=== PATIENT | male | born 1950 | race Caucasian/White ===

== ENCOUNTER 2020-11-28 15:55 | Outpatient (NON) | payer MEDICARE, SELFPAY ==
[2020-11-28 17:49] LABS: Basophils Absolute Auto 0.15 K/mm3 (0.00-0.10); Basophils Percent Auto 2.3 % (0.0-1.0); Eosinophils Absolute Auto 0.23 K/mm3 (0.02-0.50); Eosinophils Percent Auto 3.5 % (1.0-6.0); Hematocrit 26.3 % (37.0-46.0); Hemoglobin 7.9 g/dL (12.4-15.3); Immature Granulocyte Absolute 0.01 K/mm3 (0.00-0.00); Immature Granulocyte Percent A 0.2 % (0.0-0.0); Lymphocytes Absolute Auto 1.69 K/mm3 (1.10-4.50); Lymphocytes Percent Auto 25.5 % (18.0-42.0); Mean Corpuscular Hemoglobin 27.1 pg (27.0-31.0); Mean Corpuscular Volume 90.1 fL (78.0-102.0); Mean Platelet Volume 12.1 fl (8.7-11.0); Monocytes Absolute Auto 0.72 K/mm3 (0.10-0.90); Monocytes Percent Auto 10.9 % (2.0-11.0); Neutrophils Absolute Auto 3.8 K/mm3 (1.7-7.2); Neutrophils Percent Auto 57.6 % (50.0-70.0); Platelet Count Result 206 K/mm3 (150-420); Red Blood Count 2.92 M/mm3 (4.70-6.10); Red Cell Distribution Width 15.9 % (11.6-14.4); White Blood Count 6.6 K/mm3 (4.8-10.8)
[2020-11-28 18:36] LABS: Iron 35 ug/dL (65-175); Percent Iron Saturation 7 % (12-57); Vitamin B12 397 pg/mL (193-986)
== END 2020-11-28 15:56 | disposition home or self-care (01) ==
LOC: CHSLAB 17:14
PROVIDERS: Visit Provider Family Medicine
DX: D64.9 Anemia, unspecified (principal)
CPT/HCPCS: 36415; 82607; 83540; 83550; 85025

== ENCOUNTER 2020-12-08 16:38 | Outpatient (NON) | payer MEDICARE, SELFPAY ==
[2020-12-08 17:19] LABS: Iron 79 ug/dL (65-175); Percent Iron Saturation 15 % (12-57)
[2020-12-08 23:28] LABS: Basophils Absolute Auto 0.15 K/mm3 (0.00-0.10); Eosinophils Absolute Auto 0.22 K/mm3 (0.02-0.50); Hematocrit 35.1 % (37.0-46.0); Hemoglobin 10.5 g/dL (12.4-15.3); Immature Granulocyte Absolute 0.03 K/mm3 (0.00-0.00); Immature Granulocyte Percent A 0.4 % (0.0-0.0); Lymphocytes Percent Auto 25.6 % (18.0-42.0); Mean Corpuscular HGB Conc 29.9 g/dL (32.0-36.0); Mean Corpuscular Hemoglobin 28.2 pg (27.0-31.0); Mean Corpuscular Volume 94.1 fL (78.0-102.0); Mean Platelet Volume 13.1 fl (8.7-11.0); Monocytes Absolute Auto 0.65 K/mm3 (0.10-0.90); Monocytes Percent Auto 8.8 % (2.0-11.0); Neutrophils Absolute Auto 4.5 K/mm3 (1.7-7.2); Neutrophils Percent Auto 60.2 % (50.0-70.0); Platelet Count Result 198 K/mm3 (150-420); Red Blood Count 3.73 M/mm3 (4.70-6.10); Red Cell Distribution Width 20.1 % (11.6-14.4); White Blood Count 7.4 K/mm3 (4.8-10.8)
== END 2020-12-08 16:39 | disposition home or self-care (01) ==
LOC: CHSLAB 16:47
PROVIDERS: Visit Provider Family Medicine
DX: K92.2 Gastrointestinal hemorrhage, unspecified (principal); D64.9 Anemia, unspecified
CPT/HCPCS: 36415; 83540; 83550; 85025; 85055

== ENCOUNTER 2021-08-01 10:12 | Outpatient (CLI) | payer MEDICARE, MEDICAID, SELFPAY ==
[2021-08-01 10:33] LABS: Basophils Absolute Auto 0.22 K/mm3 (0.00-0.10); Basophils Percent Auto 2.6 % (0.0-1.0); Eosinophils Percent Auto 3.6 % (1.0-6.0); Hematocrit 40.8 % (37.0-46.0); Hemoglobin 12.9 g/dL (12.4-15.3); Immature Granulocyte Absolute 0.03 K/mm3 (0.00-0.00); Immature Granulocyte Percent A 0.4 % (0.0-0.0); Lymphocytes Absolute Auto 2.31 K/mm3 (1.10-4.50); Lymphocytes Percent Auto 27.5 % (18.0-42.0); Mean Corpuscular HGB Conc 31.6 g/dL (32.0-36.0); Mean Corpuscular Hemoglobin 29.8 pg (27.0-31.0); Mean Corpuscular Volume 94.2 fL (78.0-102.0); Mean Platelet Volume 11.2 fl (8.7-11.0); Monocytes Absolute Auto 0.83 K/mm3 (0.10-0.90); Monocytes Percent Auto 9.9 % (2.0-11.0); Neutrophils Absolute Auto 4.7 K/mm3 (1.7-7.2); Platelet Count Result 162 K/mm3 (150-420); Red Blood Count 4.33 M/mm3 (4.70-6.10); Red Cell Distribution Width 14.8 % (11.6-14.4); White Blood Count 8.4 K/mm3 (4.8-10.8)
[2021-08-01 16:08] LABS: Albumin Level 3.3 g/dL (3.4-5.0); Anion Gap 7 mmol/L (8-16); Blood Urea Nitrogen 24 mg/dL (7-18); Carbon Dioxide 29 mmol/L (21-32); Chloride 103 mmol/L (98-108); Estimated Glomerular Filt Rate 34; Glucose 114 mg/dL (70-99); Osmolality Calculated 293 mOsm/kg (285-295); Phosphorus 3.2 mg/dL (2.6-4.7); Potassium 4.2 mmol/L (3.5-5.1); Sodium 139 mmol/L (136-145)
== END 2021-08-01 10:13 | disposition home or self-care (01) ==
LOC: CHSLAB 10:24
PROVIDERS: PCP Family Medicine
DX: N18.4 Chronic kidney disease, stage 4 (severe) (principal)
CPT/HCPCS: 36415; 80069; 85025

== ENCOUNTER 2022-12-05 20:23 | Emergency (ER) | payer MEDICARE, MEDICAID, SELFPAY ==
--- NOTE | ~2022-12-05 | CT_ITS ---
EXAMINATION: CT brain wo con DATE: 12/05/2022 21:00 INDICATION: fall, head injury, on AC . TECHNIQUE: Computed tomography (CT) of the head was performed without intravenous contrast. The mA wa s adjusted according to patient size. Iterative reconstruction technique was employed. The dose-lengt h product was 681.00 mGy-cm. COMPARISON: None. FINDINGS: No acute intracranial hemorrhage or extra-axial fluid collection. No hydrocephalus, mass, or herniation. No acute ischemic infarct. Unremarkable dural venous sinus attenuation. No acute osseous abnormality. Left mastoid fluid, the remaining aerated spaces are clear. Mild atrophy and chronic white matter change. Atherosclerotic intracranial calcification. 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 Bilateral lens replacements. IMPRESSION: No acute intracranial process. Reviewed, dictated and finalized at location K.
--- NOTE | ~2022-12-05 | CT_ITS ---
EXAMINATION: CT cervical spine wo con DATE: 12/05/2022 21:00 INDICATION: fall, head injury, on eliquis TECHNIQUE: Computed tomography (CT) of the cervical spine was performed without intravenous contrast. Automated exposure control and iterative reconstruction technique were employed. The dose-length pro duct was 552.04 mGy-cm. COMPARISON: None. FINDINGS: Vertebral Body Alignment: Intact. Multilevel trace anterolistheses throughout the cervical spine, pre sumably on a degenerative basis. Craniocervical and atlantoaxial alignment: Moderate degenerative change. Alignment intact. Osseous structures/fracture: No evidence of a lytic or blastic process in the visualized spine. No e vidence of acute fracture. ACDF hardware at C6-7. 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 Cervical soft tissues: The paraspinal soft tissues planes are maintained. Degenerative changes: Multilevel severe degenerative disc disease and facet arthropathy. Severe bilat eral neural foraminal narrowing at C3-4. No severe central canal narrowing IMPRESSION: No acute fracture or traumatic malalignment in the cervical spine. Reviewed, dictated and finalized at location K.
[2022-12-05 20:24] VITALS: BP 96/52; PULSE 56; RESP 18; TEMP 36.6; O2SAT 100
--- NOTE | 2022-12-05 20:44 | ED.FALL ---
HPI - Fall General Chief Complaint: Fall Stated Complaint: glf Time Seen by Provider: 12/05/22 20:26 History of Present Illness HPI Narrative: Patient is a 72-year-old male here for evaluation after a fall today. Patient stood up to use the bathroom without assistance and fell to the ground. and daughter who live with the patient came to see him immediately after they heard a fall and denies any loss of consciousness/AMS. Did require some assistance to get up. He typically uses a walker to ambulate. Is unsure if he was using his walker when he fell. He does take Eliquis. Patient has had frequent falls over the past several months. Patient lives at home with his and daughter and they adamantly decline [facility] placement. Related Data Allergies Allergy/AdvReac Type Severity Reaction Status Date / Time No Known Allergies Allergy Verified 12/05/22 20:33 Review of Systems Review of Systems: Gen: Denies fevers or chills Eyes: Denies eye pain or visual change ENT: Denies congestion Respiratory: Denies shortness of breath or cough CV: Denies chest pain or palpitations GI: Denies abdominal pain nausea, emesis or diarrhea : denies burning, urgency, frequency or hematuria Musculoskeletal: Denies back pain or muscle pain Neuro: Denies numbness, tingling, weakness or focal weakness Skin: Denies rash Except as documented, all other systems reviewed and negative Exam Narrative: APPEARANCE: Chronically ill-appearing. Head: Normocephalic and atraumatic. EYES: PERRLA/EOMI, conjunctivae clear NOSE: No nasal drainage EARS: External ear normal in appearance THROAT: Oropharynx is clear. Mucous membranes are moist. NECK: Supple. No adenopathy, no masses. RESPIRATORY: Airway patent, respirations nonlabored. Clear to auscultation bilaterally, no rales, rhonchi, wheezing. CARDIOVASCULAR: Regular rate and rhythm without murmurs, rubs, or gallops. ABDOMINAL: Abdomen is distended and non-tender. Normoactive bowel sounds. MUSCULOSKELETAL: Extremities are warm and well-perfused. Moves all extremities well. No edema. NEURO: Normal speech. No focal neurologic deficits. SKIN: numerous skin tears to BUE. Skin is warm and dry. No rashes. PSYCHIATRIC: Normal affect/mood. Course Vital Signs Vital signs: Vital Signs Temperature 97.8 F 12/05/22 20:24 Pulse Rate 56 L 12/05/22 20:24 Respiratory Rate 18 12/05/22 20:24 Blood Pressure 96/52 L 12/05/22 20:24 Pulse Oximetry 100 12/05/22 20:24 Oxygen Delivery Room Air 12/05/22 20:24 Temperature 97.8 F 12/05/22 20:24 Pulse Rate 61 12/05/22 22:04 Respiratory Rate 21 H 12/05/22 22:04 Blood Pressure 116/53 L 12/05/22 22:04 Pulse Oximetry 100 12/05/22 22:04 Oxygen Delivery Room Air 12/05/22 20:24 MDM - Fall MDM Narrative Medical decision making narrative: 72-year-old chronically ill male with a history of frequent falls here after a fall w/ head injury, likely due to not using his walker tonight. brought him to the ED due to concerns over head injury and being on Eliquis, no acute intracranial process detected on CT,no deficits on exam. EKG is paced. Basic labs unremarkable, his BUN and creatinine are elevated but patient's states that this is chronic. Also states he has chronically low blood pressures. Patient having difficulty getting up in ED which he attributes to weakness, and daughter adamantly declined admission for placement and want to go home, states mostly came for CT scan. Understand risks of recurrent falls/incomplete workup but still want to go home. They were given return precautions and voiced understanding. Lab Data 12/05/22 21:23 12/05/22 21:23 Labs: Lab Results 12/05/22 Range/Units 21:23 WBC 9.7 (4.5-10.0) K/mm3 RBC 3.11 L (4.6-6.20) M/mm3 Hgb 9.8 L (14.0-18.0) g/dL Hct 29.3 L (42.0-52.0) % MCV 94.2 (80-100) fl MCH 31.5 (26-34) pg MCHC 33.4 (32-3
--- NOTE | 2022-12-05 21:00 | ECG_ITS ---
Measurements Intervals [place] Rate: 54 P: 173 RI: 162 QRS: 95 QRSD: 181 T: 258 QT: 501 QTc: 478 Interpretive Statements ELECTRONIC ATRIAL PACEMAKER WITH INHIBITION ELECTRONIC VENTRICULAR PACEMAKER VENTRICULAR PREMATURE COMPLEX NO FURTHER INTERPRETATION IS POSSIBLE ATYPICAL ECG NO PREVIOUS ECG AVAILABLE FOR COMPARISON Electronically Signed On 12-06-2022 8:09:54 CDT by Yuriy Dobbs D.O.
[2022-12-05 21:24] VITALS: BP 110/50; PULSE 60
[2022-12-05 21:25] VITALS: BP 105/52; PULSE 58
[2022-12-05 21:27] LABS: Basophils Absolute Auto 0.1 K/mm3 (0.0-0.1); Basophils Percent Auto 1.2 % (0.2-1.2); Eosinophils Absolute Auto 0.2 K/mm3 (0-0.3); Eosinophils Percent Auto 1.7 % (0-4.4); Hematocrit 29.3 % (42.0-52.0); Hemoglobin 9.8 g/dL (14.0-18.0); Immature Granulocyte Absolute 0.06 K/mm3 (0.00-0.031); Immature Granulocyte Percent A 0.6 % (0-0.5); Lymphocytes Absolute Auto 1.23 K/mm3 (0.9-3.2); Lymphocytes Percent Auto 12.7 % (18.3-44.2); Mean Corpuscular HGB Conc 33.4 g/dl (32-36); Mean Corpuscular Hemoglobin 31.5 pg (26-34); Mean Corpuscular Volume 94.2 fl (80-100); Mean Platelet Volume 11.4 fl (7.4-10.4); Monocytes Percent Auto 10.7 % (2.6-8.5); Neutrophils Absolute Auto 7.1 K/mm3 (1.3-6.7); Neutrophils Percent Auto 73.1 % (45.5-73.1); Platelet Count Result 132 k/mm3 (150-375); Red Blood Count 3.11 M/mm3 (4.6-6.20); White Blood Count 9.7 K/mm3 (4.5-10.0)
[2022-12-05 21:37] LABS: Alanine Aminotransferase 23 U/L (6-50); Albumin Level 2.2 g/dL (3.5-5.1); Alkaline Phosphatase 76 U/L (38-126); Anion Gap 3 mmol/L (8-16); Aspartate Amino Transferase 47 U/L (17-59); Bilirubin,Total 0.9 mg/dL (0.2-1.3); Blood Urea Nitrogen 51 mg/dL (9-20); Calcium 7.8 mg/dL (8.4-10.2); Carbon Dioxide 24 mmol/L (22-30); Chloride 105 mmol/L (98-107); Estimated CRCL calculation 32 ml/min; Estimated Glomerular Filt Rate 31; Glucose 201 mg/dL (65-110); Potassium 3.7 mmol/L (3.4-5.0); Sodium 132 mmol/L (137-145)
[2022-12-05 21:38] LABS: Lactic Acid Reflex 1.6 mmol/L (0.7-2.0)
[2022-12-05 22:04] VITALS: BP 116/53; PULSE 61; RESP 21; O2SAT 100
== END 2022-12-05 23:03 | disposition home or self-care (01) ==
PROVIDERS: Emergency Provider Physician Assistant; PCP Family Medicine
DX: Z04.3 Encounter for examination and observation following other accident (principal); R29.6 Repeated falls; Z79.01 Long term (current) use of anticoagulants; W18.39XA Other fall on same level, initial encounter; Z95.0 Presence of cardiac pacemaker
CPT/HCPCS: 36415; 70450; 72125; 80053; 83605; 83735; 85025; 93005; 99284

== ENCOUNTER 2022-12-15 20:02 | Inpatient (IN) | payer MEDICARE, MEDICAID, SELFPAY ==
[2022-12-15] VITALS (10 sets, daily range): BP systolic 97–121; BP diastolic 40–51; PULSE 74–81; RESP 14–20; TEMP 36.4–36.7; O2SAT 96–99; BMI 23.7
--- NOTE | ~2022-12-15 | XR_ITS ---
Portable chest x-ray Comparison: None Clinical History: Weakness Findings: Lungs are clear, without focal consolidation or pleural effusion. Cardiomediastinal silho uette is unremarkable, with pacemaker device. Bones and soft tissues are unremarkable. Impression: Clear lungs. Pacemaker device. Reviewed, dictated and finalized at location . Impression: Clear lungs. Pacemaker device.
--- NOTE | 2022-12-15 20:12 | ECG_ITS ---
Measurements Intervals [place] Rate: P: OK: QRS: QRSD: T: QT: QTc: Interpretive Statements SINUS RHYTHM WITH VENTRICULAR PACING ATYPICAL ECG Electronically Signed On 12-17-2022 9:28:29 CDT by Yvon Vincent M.D.
[2022-12-15] MEDS: SODIUM CHLORIDE 0.9% IV 1,000 ML 999 ML IV CONT (20:49)
[2022-12-15 20:55] LABS: Basophils Absolute Auto 0.07 K/mm3 (0.00-0.10); Basophils Percent Auto 0.4 % (0.0-1.0); Eosinophils Absolute Auto 0.02 K/mm3 (0.02-0.50); Eosinophils Percent Auto 0.1 % (1.0-6.0); Hematocrit 32.7 % (37.0-46.0); Hemoglobin 10.9 g/dL (12.4-15.3); Immature Granulocyte Absolute 0.13 K/mm3 (0.00-0.00); Immature Granulocyte Percent A 0.8 % (0.0-0.0); Lymphocytes Absolute Auto 0.64 K/mm3 (1.10-4.50); Lymphocytes Percent Auto 4.1 % (18.0-42.0); Mean Corpuscular HGB Conc 33.3 g/dL (32.0-36.0); Mean Corpuscular Hemoglobin 31.5 pg (27.0-31.0); Mean Corpuscular Volume 94.5 fL (78.0-102.0); Mean Platelet Volume 10.9 fl (8.7-11.0); Monocytes Absolute Auto 1.19 K/mm3 (0.10-0.90); Monocytes Percent Auto 7.6 % (2.0-11.0); Neutrophils Absolute Auto 13.7 K/mm3 (1.7-7.2); Platelet Count Result 202 K/mm3 (150-420); Red Blood Count 3.46 M/mm3 (4.70-6.10); Red Cell Distribution Width 16.8 % (11.6-14.4); White Blood Count 15.8 K/mm3 (4.8-10.8)
[2022-12-15 20:56] LABS: Bilirubin Urine Negative (Negative); Blood Urine 3+ (Negative); Color Urine Yellow (Yellow); Glucose Urine UA 3+ (Negative); Ketones Urine Negative (Negative); Leukocyte Esterase Ur 2+ LEU/UL (Negative); Nitrate Urine Negative (Negative); Protein Urine 1+ (Negative); Urobilinogen Urine 0.2 mg/dL (0.2-1.0); pH Urine 5.5 (5.0-8.0)
--- NOTE | 2022-12-15 20:59 | PC.NURSE ---
pt catheter replaced
[2022-12-15 21:02] LABS: Add Urine Microscopic? YES; Appearance Urine Turbid (Clear); Bacteria Urine 4+ /hpf; RBC Urine >100 /hpf (0-2); WBC Clumps Urine Present /hpf; WBC Urine >100 /hpf (0-3)
[2022-12-15 21:07] LABS: INR 1.5; Partial Thromboplastin Time 31.3 SEC (23.90-30.70); Prothrombin Time 15.6 Seconds (9.50-12.10)
[2022-12-15 21:09] LABS: Alanine Aminotransferase 35 U/L (16-63); Albumin Level 2.2 g/dL (3.4-5.0); Alkaline Phosphatase 139 U/L (46-116); Anion Gap 8 mmol/L (8-16); Aspartate Amino Transferase 62 U/L (15-37); Bilirubin,Total 1.2 mg/dL (0.00-1.00); Blood Urea Nitrogen 69 mg/dL (7-18); CRP 1.5 mg/dL (0.0-0.9); Calcium 8.2 mg/dL (8.5-10.1); Carbon Dioxide 21 mmol/L (21-32); Chloride 92 mmol/L (98-108); Estimated CRCL calculation 24 ml/min; Estimated Glomerular Filt Rate 22; Glucose 180 mg/dL (70-99); Osmolality Calculated 277 mOsm/kg (285-295); Potassium 5.5 mmol/L (3.5-5.1); Sodium 121 mmol/L (136-145); Total Protein 6.1 g/dL (6.4-8.2)
[2022-12-15 21:12] LABS: Lactic Acid Reflex 2.2 mmol/L (0.4-2.0)
--- NOTE | 2022-12-15 21:34 | ED.GENADULT ---
HPI - General Adult General Chief complaint: Unspecified Stated complaint: weakness, myers cath leaking Time Seen by Provider: 12/15/22 20:11 Source: patient Mode of arrival: ambulatory Limitations: no limitations History of Present Illness HPI narrative: This is a 72-year-old male that presents with family with some increased weakness does have indwelling Myers catheter that has been leaking and has been having dark cloudy urine patient is alert and oriented x3 with no chest pain no shortness of breath no fever chills no flank pain no abdominal pain. Onset (ago): day(s) Related Data Home Medications Medication Instructions Recorded Confirmed apixaban 2.5 mg tablet (Eliquis) 2.5 mg PO DAILY 12/15/22 12/15/22 atorvastatin 80 mg tablet 80 mg PO DAILY 12/15/22 12/15/22 bupropion HCl 150 mg 24 hr tablet, 150 mg PO DAILY 12/15/22 12/15/22 extended release empagliflozin 10 mg tablet 10 mg PO DAILY 12/15/22 12/15/22 (Jardiance) ferrous sulfate 325 mg (65 mg 325 mg PO BID 12/15/22 12/15/22 iron) tablet (Iron (ferrous sulfate)) hydrocodone 10 mg-acetaminophen 1 tablet PO Q4-6H PRN Pain 12/15/22 12/15/22 325 mg tablet insulin lispro 100 unit/mL 7 unit subcut TID 12/15/22 12/15/22 subcutaneous pen (Humalog KwikPen (U-100) Insulin) lisinopril 5 mg tablet 5 mg PO DAILY 12/15/22 12/15/22 omeprazole 40 mg capsule,delayed 40 mg PO DAILY 12/15/22 12/15/22 release ondansetron 4 mg disintegrating 4 mg PO PRN PRN Nausea And Vomiting 12/15/22 12/15/22 tablet sertraline 50 mg tablet 50 mg PO DAILY 12/15/22 12/15/22 tamsulosin 0.4 mg capsule 0.4 mg PO DAILY 12/15/22 12/15/22 Allergies Allergy/AdvReac Type Severity Reaction Status Date / Time No Known Allergies Allergy Verified 12/05/22 20:33 Review of Systems Review of Systems: All systems reviewed & are unremarkable except as noted in HPI and below PMFSH Past Medical History Medical History Acute dehydration Afib Anemia Anxiety and depression BPH (benign prostatic hyperplasia) CHF (congestive heart failure) Chronic kidney disease Cirrhosis Combined hyperlipidemia Diabetes mellitus GERD (gastroesophageal reflux disease) Hypertension Myocardial infarction Pacemaker Surgical History Surgical History S/P CABG x 4 Family History Family History (Updated 12/16/22 @ 08:30 by BONI Kam) Mother Hypertension Heart disease Diabetes mellitus Father Hypertension Heart disease Diabetes mellitus Social History Social History Social History: patient currently lives with his Patricia. he does have a have 2 kids a son and a daughter. He stated that he has a big black dog at home. 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 Smoking packs per day: 1 Smoking cigarettes per day: 20.0 Years smoked: 59 Smoking pack-years: 59.00 Smoking status: Current every day smoker Tobacco type: cigarettes Second hand tobacco smoke exposure: Yes Alcohol intake: former Alcohol use details: Stated that he quit 30 years ago Substance use type: does not use Lack of Transportation: No Lack of Food: Never True Current Housing: I Have Housing Concerned About Future Housing: No Difficulty Paying Gas/Electric Bills: No Difficulty Paying for Meds: No Currently Unemployed: No Education: Associate Degree Difficulty w/ Childcare or Family Care: No Living arrangements: with family Additional living arrangements comments: With Occupation/Education: retired 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
--- NOTE | 2022-12-15 21:45 | PC.NURSE ---
ERP and this RN spoke c family and pt about test results and need for admit. Pt and family are agreeable to admit here, but if transferred they wish to just go home and not go anyplace else. Call placed to [facility] for admit.
[2022-12-15] MEDS: MORPHINE SULFATE (*CRX) 2 MG/ML INJ IV PUSH (21:59)
--- NOTE | 2022-12-15 23:23 | ADMGEN ---
This patient, Karl Figueroa, was admitted to 2nd Floor Room 206-1. Patient/family oriented to hospital policies and general routines including ID bracelet, bed and alarms, visiting hours, pain management, procedures, bathroom and other care routines, personal items, smoking policy, room service/diet, and visiting hours. Information on how to activate the Rapid Response Team has been discussed. Patient/Family are encouraged to report perceived risks to care and to ask questions if they do not understand what they are told or what they should do.
[2022-12-15] MEDS: SODIUM CHLORIDE 0.9% IV 1,000 ML 75 ML IV CONT (23:45)
[2022-12-15 23:52] LABS: Reflex Lactic Acid Yes or No Add Lactic
--- NOTE | 2022-12-16 05:22 | PC.NURSE ---
Patient's weight not exact. 2 pillows and 1 blanket have been added since previous weight. Patient has just fallen back asleep this nurse did not want to bother patient again. Will ask next shift to reweigh patient first time they reposition him. IV fluids infusing without difficulty. Call light in reach.
[2022-12-16 06:07] LABS: Basophils Absolute Auto 0.08 K/mm3 (0.00-0.10); Basophils Percent Auto 0.6 % (0.0-1.0); Eosinophils Absolute Auto 0.08 K/mm3 (0.02-0.50); Eosinophils Percent Auto 0.6 % (1.0-6.0); Hematocrit 28.8 % (37.0-46.0); Hemoglobin 9.7 g/dL (12.4-15.3); Immature Granulocyte Absolute 0.12 K/mm3 (0.00-0.00); Immature Granulocyte Percent A 0.9 % (0.0-0.0); Lymphocytes Absolute Auto 1.26 K/mm3 (1.10-4.50); Lymphocytes Percent Auto 9.1 % (18.0-42.0); Mean Corpuscular HGB Conc 33.7 g/dL (32.0-36.0); Mean Corpuscular Hemoglobin 31.6 pg (27.0-31.0); Mean Corpuscular Volume 93.8 fL (78.0-102.0); Mean Platelet Volume 11.3 fl (8.7-11.0); Monocytes Absolute Auto 1.18 K/mm3 (0.10-0.90); Monocytes Percent Auto 8.5 % (2.0-11.0); Neutrophils Absolute Auto 11.2 K/mm3 (1.7-7.2); Neutrophils Percent Auto 80.3 % (50.0-70.0); Platelet Count Result 178 K/mm3 (150-420); Red Blood Count 3.07 M/mm3 (4.70-6.10); White Blood Count 13.9 K/mm3 (4.8-10.8)
[2022-12-16 06:20] LABS: Alanine Aminotransferase 27 U/L (16-63); Albumin Level 1.8 g/dL (3.4-5.0); Alkaline Phosphatase 124 U/L (46-116); Anion Gap 7 mmol/L (8-16); Aspartate Amino Transferase 51 U/L (15-37); Bilirubin,Total 0.7 mg/dL (0.00-1.00); Blood Urea Nitrogen 68 mg/dL (7-18); Calcium 7.6 mg/dL (8.5-10.1); Carbon Dioxide 22 mmol/L (21-32); Chloride 98 mmol/L (98-108); Estimated CRCL calculation 27 ml/min; Estimated Glomerular Filt Rate 25; Glucose 105 mg/dL (70-99); Magnesium 1.9 mg/dL (1.8-2.4); Osmolality Calculated 283 mOsm/kg (285-295); Phosphorus 3.1 mg/dL (2.6-4.7); Potassium 5.1 mmol/L (3.5-5.1); Sodium 127 mmol/L (136-145); Total Protein 5.2 g/dL (6.4-8.2)
--- NOTE | 2022-12-16 07:30 | PM.IMHP ---
H&P: [facility] History of Present Illness Date/Time: 12/16/22 [id number] Chief Complaint: General weakness, fall, urinary catheter dysfunction Narrative: patient is 72-year-old male with a past medical history of diabetes, NM, hypertension, hyperlipidemia, BPH, pacemaker placement with CABG who presented to the ED with his for increased weakness and urinary dysfunction. Patient is a poor historian however he did state that he got dizzy yesterday which was new for him. He also stated that he fell as well. His baseline is walking with a walker. He did state that he does not fully empty however he denies any current frequency, urgency, pain, burning. According to the ER note it was noted that the patient has been having dark cloudy urine. He denies any current chest pain, shortness a breath, nausea, vomiting, abdominal pain, diarrhea, constipation, fevers, sweats, chills, lightheadedness, syncope, loss of consciousness, abnormal swelling in legs and ankles. He did state that he feels really weak and that he does not know if he can walk. Upon arrival to the ED it was noted that the patient was hyponatremic with a sodium of 121, hyperkalemic with a potassium of 5.5, lactic acid was 2.2, CRP was elevated at 1.5, BUN creatinine are 69/2.88. AST is elevated at 139. UA did appear to be infectious. Patient does have cirrhosis and abdomen is distended. Patient also endorsed a lack of appetite and stated that he has not been eating or drinking like he normally does. Patient is being admitted to the hospitalist service under observation. Review of Systems Review of Systems: Twelve systems were reviewed and are negative unless otherwise noted in the [facility] Past Medical History Medical History Acute dehydration Afib Anemia Anxiety and depression BPH (benign prostatic hyperplasia) CHF (congestive heart failure) Chronic kidney disease Cirrhosis Combined hyperlipidemia Diabetes mellitus GERD (gastroesophageal reflux disease) Hypertension Myocardial infarction Pacemaker Surgical History Surgical History S/P CABG x 4 Family History Family History (Updated 12/16/22 @ 08:30 by BONI Kam) Mother Hypertension Heart disease Diabetes mellitus Father Hypertension Heart disease Diabetes mellitus Social History Social History Social History: patient currently lives with his Patricia. he does have a have 2 kids a son and a daughter. He stated that he has a big black dog at home. 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 Smoking packs per day: 1 Smoking cigarettes per day: 20.0 Years smoked: 59 Smoking pack-years: 59.00 Smoking status: Current every day smoker Tobacco type: cigarettes Second hand tobacco smoke exposure: Yes Alcohol intake: former Alcohol use details: Stated that he quit 30 years ago Substance use type: does not use Lack of Transportation: No Lack of Food: Never True Current Housing: I Have Housing Concerned About Future Housing: No Difficulty Paying Gas/Electric Bills: No Difficulty Paying for Meds: No Currently Unemployed: No Education: Associate Degree Difficulty w/ Childcare or Family Care: No Living arrangements: with family Additional living arrangements comments: With Occupation/Education: retired 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
[2022-12-16 07:45] LABS: Glucose Point of Care 101 mg/dl (65-105)
[2022-12-16 08:00] VITALS: BP 110/55; PULSE 64; RESP 14; TEMP 36.4; O2SAT 93
[2022-12-16 08:36] LABS: Ammonia 83 umol/L (11-32)
[2022-12-16] MEDS: buPROPion HCL XL (24 HR) 150 MG TABCR PO (08:38)
[2022-12-16] MEDS: EMPAGLIFLOZIN 10 MG TABLET PO (08:38)
[2022-12-16] MEDS: ATORVASTATIN 40 MG TABLET 80 MG PO (08:38)
[2022-12-16] MEDS: TAMSULOSIN HCL 0.4 MG CAPSULE PO (08:38)
[2022-12-16] MEDS: SERTRALINE HCL 50 MG TABLET PO (08:38)
[2022-12-16] MEDS: PANTOPRAZOLE 40 MG TABLET PO ×2 (08:38→17:25)
[2022-12-16] MEDS: APIXABAN 2.5 MG TABLET PO ×2 (08:39→21:59)
[2022-12-16 09:03] LABS: Ferritin 114 ng/mL (26-388); Folic Acid 3.8 ng/mL (8.6->20); Iron 25 ug/dL (65-175); Percent Iron Saturation 8 % (12-57); Vitamin B12 790 pg/mL (193-986)
[2022-12-16 09:05] VITALS: PULSE 92; RESP 18; O2SAT 96
[2022-12-16] MEDS: ALBUTEROL SULFATE NEB 1.25 MG/3 ML INH INHALATION (09:05)
[2022-12-16 09:21] VITALS: PULSE 92; RESP 18; O2SAT 96
[2022-12-16] MEDS: LACTULOSE 20 GM/30 ML UDC PO ×2 (09:50→17:25)
[2022-12-16] MEDS: HYDROcodone/acetaminophen (*CRX) 10-325 MG TABLET 1 TAB PO ×2 (10:21→18:51)
[2022-12-16] MEDS: SODIUM CHLORIDE 0.9% IV 1,000 ML 75 ML IV CONT (11:52)
[2022-12-16 12:04] LABS: Glucose Point of Care 117 mg/dl (65-105)
[2022-12-16 16:30] VITALS: BP 96/47; PULSE 56; RESP 18; TEMP 36.1; O2SAT 96
[2022-12-16 17:19] LABS: Alanine Aminotransferase 30 U/L (16-63); Albumin Level 1.9 g/dL (3.4-5.0); Alkaline Phosphatase 116 U/L (46-116); Anion Gap 6 mmol/L (8-16); Aspartate Amino Transferase 52 U/L (15-37); Bilirubin,Total 0.9 mg/dL (0.00-1.00); Blood Urea Nitrogen 67 mg/dL (7-18); Calcium 7.7 mg/dL (8.5-10.1); Carbon Dioxide 23 mmol/L (21-32); Chloride 99 mmol/L (98-108); Estimated CRCL calculation 27 ml/min; Estimated Glomerular Filt Rate 25; Glucose 108 mg/dL (70-99); Osmolality Calculated 286 mOsm/kg (285-295); Sodium 128 mmol/L (136-145); Total Protein 5.8 g/dL (6.4-8.2)
[2022-12-16] MEDS: FERROUS SULFATE 324 MG TABLET PO (17:25)
[2022-12-16 22:24] LABS: Glucose Point of Care 122 mg/dl (65-105)
[2022-12-16 23:56] VITALS: BP 93/55; PULSE 56; RESP 18; TEMP 36.2; O2SAT 97
[2022-12-17] MEDS: SODIUM CHLORIDE 0.9% IV 1,000 ML 75 ML IV CONT (00:03)
[2022-12-17] MEDS: HYDROcodone/acetaminophen (*CRX) 10-325 MG TABLET 1 TAB PO (05:33)
[2022-12-17 05:42] LABS: Basophils Absolute Auto 0.11 K/mm3 (0.00-0.10); Basophils Percent Auto 1.1 % (0.0-1.0); Eosinophils Absolute Auto 0.22 K/mm3 (0.02-0.50); Eosinophils Percent Auto 2.2 % (1.0-6.0); Hematocrit 27.5 % (37.0-46.0); Immature Granulocyte Absolute 0.07 K/mm3 (0.00-0.00); Immature Granulocyte Percent A 0.7 % (0.0-0.0); Lymphocytes Absolute Auto 1.07 K/mm3 (1.10-4.50); Lymphocytes Percent Auto 10.9 % (18.0-42.0); Mean Corpuscular HGB Conc 32.7 g/dL (32.0-36.0); Mean Corpuscular Volume 94.8 fL (78.0-102.0); Monocytes Absolute Auto 0.98 K/mm3 (0.10-0.90); Monocytes Percent Auto 9.9 % (2.0-11.0); Neutrophils Absolute Auto 7.4 K/mm3 (1.7-7.2); Neutrophils Percent Auto 75.2 % (50.0-70.0); Platelet Count Result 150 K/mm3 (150-420); Red Cell Distribution Width 17.1 % (11.6-14.4); White Blood Count 9.9 K/mm3 (4.8-10.8)
[2022-12-17 05:58] LABS: Alanine Aminotransferase 30 U/L (16-63); Albumin Level 1.7 g/dL (3.4-5.0); Alkaline Phosphatase 111 U/L (46-116); Anion Gap 8 mmol/L (8-16); Aspartate Amino Transferase 53 U/L (15-37); Bilirubin,Total 0.6 mg/dL (0.00-1.00); Blood Urea Nitrogen 62 mg/dL (7-18); Calcium 7.5 mg/dL (8.5-10.1); Carbon Dioxide 21 mmol/L (21-32); Chloride 102 mmol/L (98-108); Estimated CRCL calculation 30 ml/min; Estimated Glomerular Filt Rate 29; Glucose 88 mg/dL (70-99); Magnesium 1.9 mg/dL (1.8-2.4); Osmolality Calculated 288 mOsm/kg (285-295); Potassium 4.8 mmol/L (3.5-5.1); Sodium 131 mmol/L (136-145); Total Protein 4.9 g/dL (6.4-8.2)
[2022-12-17 08:00] VITALS: BP 116/54; PULSE 54; RESP 14; TEMP 36.2; O2SAT 99
[2022-12-17] MEDS: FERROUS SULFATE 324 MG TABLET PO (08:13)
[2022-12-17] MEDS: EMPAGLIFLOZIN 10 MG TABLET PO (09:13)
[2022-12-17] MEDS: TAMSULOSIN HCL 0.4 MG CAPSULE PO (09:13)
[2022-12-17] MEDS: ATORVASTATIN 40 MG TABLET 80 MG PO (09:13)
[2022-12-17] MEDS: PANTOPRAZOLE 40 MG TABLET PO (09:14)
[2022-12-17] MEDS: APIXABAN 2.5 MG TABLET PO (09:14)
[2022-12-17] MEDS: LACTULOSE 20 GM/30 ML UDC PO (09:14)
--- NOTE | 2022-12-17 11:20 | PC.NURSE ---
Pt discharged to home with . Patrick LIZAMA/Karen, Pt transfers with assist of 1 , 16fr coude myers patent and draining, placed 12/14/22. Discharge instructions given regarding pt medications, follow up MD appointments and checking blood sugars. Instructions given on myers care at home. Both pt and verbalize understanding. Pt taken to family car via WC by this RN and helped inside.
--- NOTE | 2022-12-18 12:14 | PM.DS ---
DS: Admitting Diagnosis Discharge Date 12/17/22 Admitting Diagnosis Urinary tract infection, Fall DS: Summary Hospital Course Reason for hospitalization: UTI and weakness Hospital Course: ?patient is 72-year-old male with a past medical history of diabetes, MS, hypertension, hyperlipidemia, BPH, pacemaker placement with CABG . Patient was found to have a urinary tract infection on admission and was placed on IV Rocephin. Patient received some IV fluids as well as he was hypotensive and currently has a UTI. On arrival patient was in to see [facility] discharge he has remained afebrile and is able to eat and drink without any difficulties and is feeling a lot better patient will discharge for [facility] catheter. Culture was sent off we will send patient home on oral antibiotics discussed with patient wound culture comes back if antibiotic that he is on does not take care but we will call in another antibiotic it was he receives no phone calls than the antibiotics will take care of the bacteria. Patient has a appointment with Urology tomorrow morning. Patient has refuse physical therapy but currently are ready has home health that comes into the home and the assist with patient . Mr. Figueroa's is his caregiver and she is psis making sure he gets his medication and things patient denies any nausea vomiting and/or diarrhea no chest pain and he has remained afebrile Time Spent with Patient Time attestation: Total time spent providing and/or coordinating discharge services: Exam Narrative: General: well-nourished, Chronically ill-appearing 72-year-old male, Laying in bed, comfortable, NARD Neuro: awake, alert and oriented x4, speech clear, no focal neuro deficits noted HEENMT: normocephalic, atraumatic, EOMI, sclerae anicteric, moist oral mucosa Respiratory: Clear to auscultation bilaterally without crackles, rhonchi or wheezes, nonlabored breathing Cardio: regular rate, paced rhythm with S1-S2 Abdomen: mildly distended, hypoactive bowel sounds, soft, nontender to palpation Extremities: no edema, erythema, or tenderness to palpation, DP pulses 2+ bilaterally Skin: no rashes or lesions, warm and dry Psych: appropriate mood and affect, judgment and insight intact DS: Data Data Completed and Pending Labs on day of discharge: Preliminary micro results at discharge 12/15/22 20:50 Blood Culture - Preliminary Blood Citrobacter freundii 12/15/22 20:49 Blood Culture - Preliminary Blood Citrobacter freundii Discharge Plan Discharge Attending physician on discharge: Ismael Thornton Consulting providers: Yvon Vincent; Soy Leal; Jef Locke; Ant Amos Discharging Clinician: Georgie Anders Anticipated Discharge Date/Time: 12/17/22 09:54 Patient Disposition: Home Health Service Activity: may shower, unlimited and no driving Diet: as tolerated, heart healthy and renal Wound Care Instructions: follow printed instructions Discharge Instructions: Keep your urology appointment tomorrow in [place] I have encourage PT as you have declined at this time. Continue with your home health services with [facility]. Follow up with your PCP Patient Instructions: Antibiotic Form, Sulfamethoxazole/Trimethoprim (By mouth), Acute Kidney Injury (DC), Hyponatremia (DC), COPD (Chronic Obstructive Pulmonary Disease) (DC), Chronic Hypertension (DC), Anemia (DC), Fall Prevention (DC), Catheter-associated Urinary Tract Infection (DC) Stand Alone Forms: General Discharge Information Follow-up/Referrals: Ming Dickey M.D. [Primary Care Provider] - Call for Appointment ( prefers to make appointment for patient, he has urology scheduled tomorrow and tap on .) Discharge Medications: New sulfamethoxazole-trimethoprim [Bactrim DS] 800-160 mg tablet 1 tablet PO Q12H 4 Days Qty: 8 0RF Continued atorvastatin 80 mg tablet 80 mg PO DAILY hydrocodone-acetaminophen 10-3
--- NOTE | 2022-12-19 11:29 | PC.NURSE ---
Spouse states they received and understood the discharge instructions. Spouse has no other comments.
[2022-12-19 19:36] LABS: Transferrin 205 mg/dL (188-341)
== END 2022-12-17 10:50 | disposition home health service (06) | DRG 699 ==
LOC: CHSED 21:57 → CHS2ND 22:12
PROVIDERS: Nurse Practitioner; Nurse Practitioner Adult Health; Admitting Provider Internal Medicine; Emergency Provider Emergency Medicine; PCP Family Medicine; Visit Provider Nurse Practitioner Family
DX: T83.511A Infection and inflammatory reaction due to indwelling urethral catheter, initial encounter (principal); E87.1 Hypo-osmolality and hyponatremia; I13.0 Hypertensive heart and chronic kidney disease with heart failure and stage 1 through stage 4 chronic kidney disease, or unspecified chronic kidney disease; I48.20 Chronic atrial fibrillation, unspecified; N17.9 Acute kidney failure, unspecified; I50.9 Heart failure, unspecified; N18.9 Chronic kidney disease, unspecified; E11.22 Type 2 diabetes mellitus with diabetic chronic kidney disease; T83.031A Leakage of indwelling urethral catheter, initial encounter; E87.5 Hyperkalemia; K74.60 Unspecified cirrhosis of liver; D64.9 Anemia, unspecified; K21.9 Gastro-esophageal reflux disease without esophagitis; N40.1 Benign prostatic hyperplasia with lower urinary tract symptoms; R33.8 Other retention of urine; F41.9 Anxiety disorder, unspecified; F32.A Depression, unspecified; I25.2 Old myocardial infarction; Z95.0 Presence of cardiac pacemaker; Z79.01 Long term (current) use of anticoagulants; Z79.4 Long term (current) use of insulin
CPT/HCPCS: 36415; 71045; 80053; 81001; 82140; 82607; 82728; 82746; 82948; 83540; 83550; 83605; 83735; 84100; 84466; 85025; 85610; 85730; 86140; 87040; 87077; 87086; 87088; 87147; 87186; 93005; 94640; 96361; 96365; 96375; 99285; A9270; G0378; J0696; J2270; J7030